=== PATIENT | male | born 1965 | race Caucasian/White ===

== ENCOUNTER 2020-04-28 23:51 | Inpatient (IN) ==
[2020-04-28] MEDS ORDERED: SODIUM CHLORIDE 0.9% 1000ML 500 ML IV ONE (23:58)
--- NOTE | 2020-04-29 00:04 | Emergency Department Note ---
Impression & Plan Altered mental status, Alcohol withdrawal ED Provider Note Name: AVILA CATHERINE Age: 55 Sex: M Arrives Via: Ambulance Informant: EMS ED Provider: Manav Louis MD Chief Complaint: Confusion Impression: Altered Mental Status Alcohol Withdrawal Medical Decision Makin yr old male with CAD s/p cabg, alcoholism, opioid addiction, htn, gerd, depression, hyperlipidemia from outside of area arrives from [facility] where he is staying for drug/alcohol rehab for the last 3 days. Patient too confused to get story though he is awake and interacting. Seems very much like alcohol withdrawal as at times he is a bit tremulous. His vitals fortunately a re normal and no hypertension/tachycardia. Labs obtained are unremarkable. There is no evidence of infection. CT head obtained given confusion and reported falls which was fortunately negative. EKG OK as is trop. Patient was given some IV fluids as he appeared a bit dry (multiple multivitamins/etc on med list thus held off on banana bag). He was noted to have some improvement in mental status though became a bit more tremulous. I discussed case with hospitalist who will bring patient in for further monitoring/management. Triage/Nursing Notes reviewed by Me Additional history obtained from chart from [facility] Differentials:Infection, dehydration, metabolic abnormality, hypo/hyperglycemia, electrolyte disturbance, anemia, hypoxia, cardiac sources, intracerebral event, toxicologic, neurologic, as well as other pathologies. Vital Signs: reviewed and remarkable for no significant abnormalities Interventions: NSS bolus 1 L IV Labs:Reviewed and remarkable for no significant abnormalities Imaging:X ray results are stated below per my interpretation: Chest: 1 view: No infiltrate, no effusion, normal cardiac border. [facility] Radiologist interpretation reviewed by me: CT head no acute findings EKG:Per My Interpretation: Indication Confusion: NSR 65 bpm, qtc 420. No Ectopy. No Ischemia. No previous for comparison. Cardiac/Tele Monitoring: Cardiac Monitoring: An Order was placed for continuous cardiac monitoring. The monitor shows a rate of 60 with a normal sinus rhythm. Consults:Dr Rema THOMAS Hospitalist Plan: Disposition:Hospitalization. Condition: Fair Prescriptions:None PDMP: n/a History of Present Illness:55 yr old male arrives for evaluation of confusion from [facility]. Patient has been at Rehab reportedly for narcotic addiction for the last 3 days after being discharged from an unknown health care facility to there. He reportedly has some baseline confusion but over the last day he has had increasing confusion. Reportedly was weak and falling at [facility] with at least 2 witnessed fall due to weakness. No reported fevers, vomiting. Patient states he is thirsty. He does not remember why he is here, where he came from, where he is, what year it is, etc. He remembers his name. Reportedly a bit diaphoretic for EMS though that seems to be resolving. Unknown if any medications given prior to EMS arrival. Nothing makes better nor worse. ROS: Unable to obtain as patient confused and denies everything but feeling thirsty Per Chart from [facility] Past Medical History:CAD, Chronic pain, htn, hypomag, depression, alcoholism (?), hyperlipidemia, GERD Past Surgical History:CABG Family History:Unknown due to patient confusion Social History:From Rehab, reportedly narcotic abuse, ? alcohol abuse?, unknown other history due to confusion Home Medications:Vivitrol injection, Buspar, coreg, b 12, folic acid, gabapentin, lisinopril, magnesium, multivitamin, zofran, protonix, paxil, sucralfate, thiamine Allergies:Per Chart: Baclofen, Flexeril, Naproxen Vitals:Blood Pressure: 149/90, Pulse 75, RR 20, T 36.9C, O2 97% on RA Physical Exam: GENERAL: Patient is confused appearing and in no acute distress. EYES: No scleral icterus, unremarkable pupils. ENT: Mucous membranes dry, no nasal congestion. NECK: No masses appreciated, nomeningismus, trachea is midline. RESPIRATORY: No dyspnea. Clear to auscultation and equal bilaterally. No wheeze, no rhonchi. CARDIOVASCULAR: Regular rate and rhythm.No murmurs, rubs, gallops appreciated. GASTROINTESTINAL: Abdomen soft, non-tender, no peritonitis.Bowel sounds positive.No masses appreciated. BACK: No midline tenderness, no CVA tenderness EXTREMITIES: Normal motion all extremities, no cyanosis, no edema. NEUROLOGIC: Mild tremulous, awake though not oriented to anything but name, no acute motor or sensory deficits, no focal weakness, cranial nerves grossly intact. SKIN: No rash, no jaundice, no diaphoresis. PSYCH: Confused GCS: 15 ED Course: Times/Reassessments: Mild improvement in mental status though noted some tremulous hands, no DTs appreciated otherwise and vitals normal Manav Louis MD Past Med/Surg History Social History Smoking Status: Unknown if ever smoked Feels Safe at Home: Yes Allergies Allergies Allergy/AdvReac Type Severity Reaction Status Date / Time baclofen Allergy Unknown Verified 04/29/20 00:18 cyclobenzaprine Allergy Unknown Verified 04/29/20 00:18 [From Flexeril] naproxen Allergy Unknown Verified 04/29/20 00:18 Home Meds Home Medications Medication Instructions Recorded Confirmed buspirone [BuSpar] 5 mg PO BID 04/29/20 04/29/20 carvedilol [Coreg] 25 mg PO BID 04/29/20 04/29/20 cyanocobalamin (vitamin B-12) 1,000 mcg PO DAILY 04/29/20 04/29/20 [Vitamin B-12] folic acid 1 mg PO DAILY 04/29/20 04/29/20 gabapentin 800 mg PO QID 04/29/20 04/29/20 lisinopril 40 mg PO QAM 04/29/20 04/29/20 magnesium oxide 400 mg PO BID 04/29/20 04/29/20 multivitamin 1 tab PO DAILY 04/29/20 04/29/20 naltrexone microspheres [Vivitrol] 380 mg IM MONTHLY 04/29/20 04/29/20 ondansetron HCl [Zofran] 8 mg PO Q8H PRN 04/29/20 04/29/20 pantoprazole [Protonix] 40 mg PO BID 04/29/20 04/29/20 paroxetine HCl [Paxil] 20 mg PO QAM 04/29/20 04/29/20 sucralfate 1 g PO ACHS 04/29/20 04/29/20 thiamine HCl (vitamin B1) 100 mg PO DAILY 04/29/20 04/29/20 Results & Data (ED) Vital Signs Vital Signs - 24 hr 04/29/20 00:02 04/29/20 00:03 04/29/20 00:08 Temperature 36.9 C Temperature Source Oral Pulse Rate 67 67 65 Pulse Rate [Right Finger] Pulse Rate from SpO2 Sensor 67 Respiratory Rate 15 17 20 Respiratory Effort / Characteristics Non-Labored Spontaneous Respiratory Depth Normal Blood Pressure 103/66 103/66 Blood Pressure [Right Arm] Blood Pressure Mean 74 78 Blood Pressure Mean [Right Arm] Pulse Oximetry 95 96 Oxygen Delivery Method Room Air Sepsis Recent Fever Within 48 Hours No Sepsis New/Unexplained Change in Mental Status No Sepsis Action Taken by Nursing No Action Required 04/29/20 00:10 04/29/20 00:20 04/29/20 00:29 Temperature Temperature Source Pulse Rate 64 66 Pulse Rate [Right Finger] 75 Pulse Rate from SpO2 Sensor 63 64 Respiratory Rate 15 14 20 Respiratory Effort / Characteristics Non-Labored Respiratory Depth Normal Blood Pressure Blood Pressure [Right Arm] 149/90 H Blood Pressure Mean Blood Pressure Mean [Right Arm] 109 Pulse Oximetry 95 94 97 Oxygen Delivery Method Room Air Sepsis Recent Fever Within 48 Hours Sepsis New/Unexplained Change in Mental Status Sepsis Action Taken by Nursing 04/29/20 00:30 04/29/20 00:31 04/29/20 00:40 Temperature Temperature Source Pulse Rate 61 64 69 Pulse Rate [Right Finger] Pulse Rate from SpO2 Sensor 64 64 72 Respiratory Rate 16 12 13 Respiratory Effort / Characteristics Respiratory Depth Blood Pressure 116/78 Blood Pressure [Right Arm] Blood Pressure Mean 95 Blood Pressure Mean [Right Arm] Pulse Oximetry 94 94 93 Oxygen Delivery Method Sepsis Recent Fever Within 48 Hours Sepsis New/Unexplained Change in Mental Status Sepsis Action Taken by Nursing 04/29/20 00:50 04/29/20 01:09 04/29/20 01:10 Temperature Temperature Source Pulse Rate 62 57 L Pulse Rate [Right Finger] Pulse Rate from SpO2 Sensor 62 58 L Respiratory Rate 13 Respiratory Effort / Characteristics Respiratory Depth Blood Pressure Blood Pressure [Right Arm] Blood Pressure Mean Blood Pressure Mean [Right Arm] Pulse Oximetry 97 96 Oxygen Delivery Method Sepsis Recent Fever Within 48 Hours Sepsis New/Unexplained Change in Mental Status Sepsis Action Taken by Nursing 04/29/20 01:20 04/29/20 01:30 04/29/20 01:40 Temperature Temperature Source Pulse Rate 58 L 59 L 62 Pulse Rate [Right Finger] Pulse Rate from SpO2 Sensor 59 L 59 L 61 Respiratory Rate 13 15 12 Respiratory Effort / Characteristics Respiratory Depth Blood Pressure 110/74 Blood Pressure [Right Arm] Blood Pressure Mean 79 Blood Pressure Mean [Right Arm] Pulse Oximetry 94 95 96 Oxygen Delivery Method Sepsis Recent Fever Within 48 Hours Sepsis New/Unexplained Change in Mental Status Sepsis Action Taken by Nursing 04/29/20 01:50 04/29/20 01:59 04/29/20 02:00 Temperature Temperature Source Pulse Rate 61 58 L Pulse Rate [Right Finger] 61 Pulse Rate from SpO2 Sensor 62 58 L Respiratory Rate 18 20 15 Respiratory Effort / Characteristics Respiratory Depth Blood Pressure 119/71 Blood Pressure [Right Arm] 110/74 Blood Pressure Mean 78 Blood Pressure Mean [Right Arm] 86 Pulse Oximetry 97 96 94 Oxygen Delivery Method Room Air Sepsis Recent Fever Within 48 Hours Sepsis New/Unexplained Change in Mental Status Sepsis Action Taken by Nursing 04/29/20 02:30 04/29/20 03:00 Temperature Temperature Source Pulse Rate 58 L 60 Pulse Rate [Right Finger] Pulse Rate from SpO2 Sensor 57 L 59 L Respiratory Rate 13 12 Respiratory Effort / Characteristics Respiratory Depth Blood Pressure 98/71 L 107/69 Blood Pressure [Right Arm] Blood Pressure Mean 79 78 Blood Pressure Mean [Right Arm] Pulse Oximetry 95 93 Oxygen Delivery Method Sepsis Recent Fever Within 48 Hours Sepsis New/Unexplained Change in Mental Status Sepsis Action Taken by Nursing Laboratory Data Result diagrams: 04/29/20 00:14 04/29/20 00:14 Lab Results 04/29/20 04/29/20 04/29/20 Range/Units 00:04 00:04 00:14 WBC (4.8-10.8) K/uL RBC (4.7-6.1) M/uL Hgb (14.0-18.0) g/dL Hct (42-52) % MCV (80-100) fL MCH (25-34) pg MCHC (32-36) g/dL RDW Std Deviation (36.4-46.3) fL RDW Coeff of Dionne (11.5-14.5) % Plt Count (130-400) K/uL MPV (7.4-10.4) fL Immature Gran % (Auto) % Neut % (Auto) % Lymph % (Auto) % Haywood % (Auto) % Eos % (Auto) % Baso % (Auto) % Neut # (Auto) (1.4-6.5) K/uL Lymph # (Auto) (1.2-3.4) K/uL Haywood # (Auto) (0.11-0.59) K/uL Eos # (Auto) (0-0.5) K/uL Baso # (Auto) (0-0.2) K/uL Immature Gran # (Auto) (0.00-0.02) K/uL PT (9.0-12.0) Seconds INR (0.9-1.1) Sodium (136-145) mmol/L Potassium (3.5-5.1) mmol/L Chloride (98-107) mmol/L Carbon Dioxide (21-32) mmol/L Anion Gap (3-11) BUN (7-18) mg/dl Creatinine (0.6-1.4) mg/dl Est Cr Clr Drug Dosing ml/min Est GFR ( Amer) Est GFR (Non-Af Amer) BUN/Creatinine Ratio (10-20) Glucose (70-99) mg/dl Calcium (8.5-10.1) mg/dl Magnesium (1.8-2.4) mg/dl Total Bilirubin (0.2-1) mg/dl Direct Bilirubin (0-0.2) mg/dl AST (15-37) U/L ALT (12-78) U/L Alkaline Phosphatase (45-117) U/L Ammonia 27.0 (11-32) umol/L Troponin I (0-0.045) ng/ml Total Protein (6.4-8.2) gm/dl Albumin (3.4-5.0) gm/dl Urine Color Yellow Urine Appearance Clear (Clear) Urine pH 5.5 (4.5-7.5) Ur Specific Brewster 1.012 (1.000-1.030) Urine Protein Negative (Negative) Urine Glucose (UA) Negative (Negative) Urine Ketones Negative (Negative) Urine Blood Negative (Negative) Urine Nitrite Negative (Negative) Urine Bilirubin Negative (Negative) Urine Urobilinogen Negative (Negative) Ur Leukocyte Esterase Negative (Negative) Urine Opiates Screen Neg (Neg) Ur Methadone, Qual Neg (Neg) Urine Barbiturates Neg (Neg) Ur Phencyclidine (PCP) Neg (Neg) U Amphetamin/Meth Scrn Neg (Neg) MDMA (Ecstasy) Screen Neg (Neg) U Benzodiazepines Scrn Pos H (Neg) Ur Cocaine Metabolite Neg (Neg) U Marijuana (THC) Screen Neg (Neg) Ethyl Alcohol mg/dL (0-3) mg/dl COVID-19 Eval Order SARS-CoV-2 RNA (RT-PCR) 04/29/20 04/29/20 04/29/20 Range/Units 00:14 00:14 00:14 WBC 7.92 (4.8-10.8) K/uL RBC 4.45 L (4.7-6.1) M/uL Hgb 14.8 (14.0-18.0) g/dL Hct 44.5 (42-52) % MCV 100.0 (80-100) fL MCH 33.3 (25-34) pg MCHC 33.3 (32-36) g/dL RDW Std Deviation 47.9 H (36.4-46.3) fL RDW Coeff of Dionne 13.3 (11.5-14.5) % Plt Count 208 (130-400) K/uL MPV 12.4 H (7.4-10.4) fL Immature Gran % (Auto) 0.3 % Neut % (Auto) 64.0 % Lymph % (Auto) 21.0 % Haywood % (Auto) 9.5 % Eos % (Auto) 4.4 % Baso % (Auto) 0.8 % Neut # (Auto) 5.08 (1.4-6.5) K/uL Lymph # (Auto) 1.66 (1.2-3.4) K/uL Haywood # (Auto) 0.75 H (0.11-0.59) K/uL Eos # (Auto) 0.35 (0-0.5) K/uL Baso # (Auto) 0.06 (0-0.2) K/uL Immature Gran # (Auto) 0.02 (0.00-0.02) K/uL PT 10.5 (9.0-12.0) Seconds INR 1.0 (0.9-1.1) Sodium 138 (136-145) mmol/L Potassium 5.3 H (3.5-5.1) mmol/L Chloride 105 (98-107) mmol/L Carbon Dioxide 27 (21-32) mmol/L Anion Gap 6.0 (3-11) BUN 22 H (7-18) mg/dl Creatinine 1.53 H (0.6-1.4) mg/dl Est Cr Clr Drug Dosing 60.3 ml/min Est GFR ( Amer) 58.9 Est GFR (Non-Af Amer) 50.8 BUN/Creatinine Ratio 14.2 (10-20) Glucose 110 H (70-99) mg/dl Calcium 9.7 (8.5-10.1) mg/dl Magnesium 2.5 H (1.8-2.4) mg/dl Total Bilirubin 0.2 (0.2-1) mg/dl Direct Bilirubin < 0.1 (0-0.2) mg/dl AST 63 H (15-37) U/L ALT 66 (12-78) U/L Alkaline Phosphatase 68 (45-117) U/L Ammonia (11-32) umol/L Troponin I < 0.015 (0-0.045) ng/ml Total Protein 8.3 H (6.4-8.2) gm/dl Albumin 3.5 (3.4-5.0) gm/dl Urine Color Urine Appearance (Clear) Urine pH (4.5-7.5) Ur Specific Brewster (1.000-1.030) Urine Protein (Negative) Urine Glucose (UA) (Negative) Urine Ketones (Negative) Urine Blood (Negative) Urine Nitrite (Negative) Urine Bilirubin (Negative) Urine Urobilinogen (Negative) Ur Leukocyte Esterase (Negative) Urine Opiates Screen (Neg) Ur Methadone, Qual (Neg) Urine Barbiturates (Neg) Ur Phencyclidine (PCP) (Neg) U Amphetamin/Meth Scrn (Neg) MDMA (Ecstasy) Screen (Neg) U Benzodiazepines Scrn (Neg) Ur Cocaine Metabolite (Neg) U Marijuana (THC) Screen (Neg) Ethyl Alcohol mg/dL (0-3) mg/dl COVID-19 Eval Order SARS-CoV-2 RNA (RT-PCR) 04/29/20 04/29/20 04/29/20 Range/Units 00:14 01:36 01:36 WBC (4.8-10.8) K/uL RBC (4.7-6.1) M/uL Hgb (14.0-18.0) g/dL Hct (42-52) % MCV (80-100) fL MCH (25-34) pg MCHC (32-36) g/dL RDW Std Deviation (36.4-46.3) fL RDW Coeff of Dionne (11.5-14.5) % Plt Count (130-400) K/uL MPV (7.4-10.4) fL Immature Gran % (Auto) % Neut % (Auto) % Lymph % (Auto) % Haywood % (Auto) % Eos % (Auto) % Baso % (Auto) % Neut # (Auto) (1.4-6.5) K/uL Lymph # (Auto) (1.2-3.4) K/uL Haywood # (Auto) (0.11-0.59) K/uL Eos # (Auto) (0-0.5) K/uL Baso # (Auto) (0-0.2) K/uL Immature Gran # (Auto) (0.00-0.02) K/uL PT (9.0-12.0) Seconds INR (0.9-1.1) Sodium (136-145) mmol/L Potassium (3.5-5.1) mmol/L Chloride (98-107) mmol/L Carbon Dioxide (21-32) mmol/L Anion Gap (3-11) BUN (7-18) mg/dl Creatinine (0.6-1.4) mg/dl Est Cr Clr Drug Dosing ml/min Est GFR ( Amer) Est GFR (Non-Af Amer) BUN/Creatinine Ratio (10-20) Glucose (70-99) mg/dl Calcium (8.5-10.1) mg/dl Magnesium (1.8-2.4) mg/dl Total Bilirubin (0.2-1) mg/dl Direct Bilirubin (0-0.2) mg/dl AST (15-37) U/L ALT (12-78) U/L Alkaline Phosphatase (45-117) U/L Ammonia (11-32) umol/L Troponin I (0-0.045) ng/ml Total Protein (6.4-8.2) gm/dl Albumin (3.4-5.0) gm/dl Urine Color Urine Appearance (Clear) Urine pH (4.5-7.5) Ur Specific Brewster (1.000-1.030) Urine Protein (Negative) Urine Glucose (UA) (Negative) Urine Ketones (Negative) Urine Blood (Negative) Urine Nitrite (Negative) Urine Bilirubin (Negative) Urine Urobilinogen (Negative) Ur Leukocyte Esterase (Negative) Urine Opiates Screen (Neg) Ur Methadone, Qual (Neg) Urine Barbiturates (Neg) Ur Phencyclidine (PCP) (Neg) U Amphetamin/Meth Scrn (Neg) MDMA (Ecstasy) Screen (Neg) U Benzodiazepines Scrn (Neg) Ur Cocaine Metabolite (Neg) U Marijuana (THC) Screen (Neg) Ethyl Alcohol mg/dL < 3.0 (0-3) mg/dl COVID-19 Eval Order Covid19 Done at [facility] SARS-CoV-2 RNA (RT-PCR) Cancelled Administered Medications Discontinued Medications Sodium Chloride (Nss 1000ml) 500 mls @ 999 mls/hr IV .Q31M ONE Stop: 04/29/20 00:28 Last Admin: 04/29/20 00:31 Dose: 999 mls/hr Documented by: [id number] Discharge Plan Visit Data Chief Complaint: Dizziness Stated Complaint: DIZZINESS/NEAR SYNCOPE ED Provider: Manav Louis Discharge Problem: Altered mental status, Alcohol withdrawal Forms Stand Alone Forms: My [facility] [place] [employer] Prescriptions Prescriptions: No Action carvedilol [Coreg] 25 mg Tablet 25 mg PO BID RF: 0 cyanocobalamin (vitamin B-12) [Vitamin B-12] 1,000 mcg Tablet 1,000 mcg PO DAILY RF: 0 thiamine HCl (vitamin B1) 100 mg Tablet 100 mg PO DAILY RF: 0 gabapentin 800 mg tablet 800 mg PO QID RF: 0 paroxetine HCl [Paxil] 20 mg Tablet 20 mg PO QAM RF: 0 folic acid 1 mg Tablet 1 mg PO DAILY RF: 0 Vivitrol 380 mg suspension,extended rel recon 380 mg IM MONTHLY RF: 0 magnesium oxide 400 mg magnesium Tablet 400 mg PO BID RF: 0 multivitamin Tablet 1 tab PO DAILY RF: 0 buspirone [BuSpar] 5 mg Tablet 5 mg PO BID RF: 0 sucralfate 1 gram Tablet 1 g PO ACHS RF: 0 pantoprazole [Protonix] 40 mg Tablet,Delayed Release (Dr/Ec) 40 mg PO BID RF: 0 lisinopril 40 mg Tablet 40 mg PO QAM RF: 0 ondansetron HCl [Zofran] 8 mg Tablet 8 mg PO Q8H PRN (Reason: Nausea) RF: 0 Discharge Problem: Altered mental status Qualifiers: Altered mental status type: delirium Qualified Code(s): R41.0 - Disorientation, unspecified Alcohol withdrawal Qualifiers: Complication of substance-induced condition: with delirium Qualified Code(s): F10.231 - Alcohol dependence with withdrawal delirium
--- NOTE | 2020-04-29 00:16 | XRay Report ---
SINGLE VIEW CHEST CLINICAL HISTORY: Change in mental status. FINDINGS: An AP, portable, upright chest radiograph is obtained. No prior studies are available for c omparison at the time of dictation. The examination is degraded by portable technique and apical lord otic positioning. The patient is status post midline sternotomy. The heart is enlarged. The pulmonary vasculature is noncongested. Atelectasis is noted at the left lung base. The lungs and pleural space s are otherwise clear. No pneumothorax is seen. The bony thorax is grossly intact. IMPRESSION: Cardiomegaly with no active disease in the chest. ACT 112: Negative or not required by law. Electronically signed by: Oscar Dela Cruz M.D. 04/29/2020 12:15 AM
[2020-04-29 00:34] LABS: Basophils # (auto) 0.06 K/uL (0-0.2); Basophils % (auto) 0.8 %; Eosinophils # (auto) 0.35 K/uL (0-0.5); Eosinophils % (auto) 4.4 %; Hematocrit (blood only) 44.5 % (42-52); Hemoglobin 14.8 g/dL (14.0-18.0); Immature Granulocytes # (auto) 0.02 K/uL (0.00-0.02); Immature Granulocytes % (auto) 0.3 %; Lymphocytes # (auto) 1.66 K/uL (1.2-3.4); Mean Corpuscular Hemoglobin 33.3 pg (25-34); Mean Corpuscular Hgb Conc 33.3 g/dL (32-36); Mean Platelet Volume 12.4 fL (7.4-10.4); Monocytes # (auto) 0.75 K/uL (0.11-0.59); Monocytes % (auto) 9.5 %; Neutrophils # (auto) 5.08 K/uL (1.4-6.5); Platelet Count 208 K/uL (130-400); RDW Coefficient of Variation 13.3 % (11.5-14.5); RDW Standard Deviation 47.9 fL (36.4-46.3); Red Blood Count 4.45 M/uL (4.7-6.1); White Blood Count 7.92 K/uL (4.8-10.8)
[2020-04-29 00:37] LABS: Appearance Urine Clear (Clear); Bilirubin Urine Negative (Negative); Blood Urine Negative (Negative); Color Urine Yellow; Glucose Urine UA Negative (Negative); Ketones Urine Negative (Negative); Leukocyte Esterase Urine Negative (Negative); Nitrite Urine Negative (Negative); Protein Urine Negative (Negative); Specific Gravity Urine 1.012 (1.000-1.030); Urobilinogen Urine Negative (Negative); pH Urine 5.5 (4.5-7.5)
[2020-04-29 00:52] LABS: Prothrombin Time 10.5 Seconds (9.0-12.0)
[2020-04-29 00:53] LABS: Alanine Aminotransferase 66 U/L (12-78); Albumin Level 3.5 gm/dl (3.4-5.0); Aspartate Aminotransferase 63 U/L (15-37); BUN Creatinine Ratio 14.2 (10-20); Bilirubin Direct < 0.1 mg/dl (0-0.2); Blood Urea Nitrogen 22 mg/dl (7-18); Calcium 9.7 mg/dl (8.5-10.1); Carbon Dioxide 27 mmol/L (21-32); Chloride 105 mmol/L (98-107); Creatinine Clr Calc Pharmacy 60.3 ml/min; Est GFR (African American) 58.9; Est GFR (Non-African American) 50.8; Glucose 110 mg/dl (70-99); Magnesium 2.5 mg/dl (1.8-2.4); Potassium 5.3 mmol/L (3.5-5.1); Sodium 138 mmol/L (136-145)
[2020-04-29 00:58] LABS: Alkaline Phosphatase 68 U/L (45-117); Bilirubin,Total 0.2 mg/dl (0.2-1); Total Protein 8.3 gm/dl (6.4-8.2); Troponin I < 0.015 ng/ml (0-0.045)
--- NOTE | 2020-04-29 01:17 | CT Scan Report ---
CT SCAN OF THE BRAIN WITHOUT IV CONTRAST CLINICAL HISTORY: Change in mental status. Dizziness. COMPARISON STUDY: No priors. TECHNIQUE: Unenhanced axial CT scan of the brain is performed from the vertex to the skull base. A d ose lowering technique was utilized adhering to the principles of ALARA. CT DOSE: 614.27 mGy.cm FINDINGS: Brain parenchyma: The brain parenchyma is normal in appearance. There is no hemorrhage, mass effect, or evidence of acute territorial ischemia by CT criteria. Johnston-white matter differentiation is preser az. No extra-axial fluid collection is seen. Ventricles, sulci, cisterns: Normal in configuration. Intracranial vasculature: The visualized intracranial vasculature at the skull base is normal in appe arance. Calvarium: Unremarkable. Sinuses and mastoids: The visualized paranasal sinuses are clear. The mastoid air cells are well pneu matized. Orbits: The bony orbits are grossly intact. IMPRESSION: There is no hemorrhage, mass effect, or evidence of acute territorial ischemia by CT merna powers. ACT 112: Negative or not required by law. Electronically signed by: Oscar Dela Cruz M.D. 04/29/2020 1:15 AM
[2020-04-29 01:56] LABS: Amphetamines+Metham, Urine Neg (Neg); Barbiturates, Urine Neg (Neg); Benzodiazepine, Urine Pos (Neg); Cocaine, Urine Neg (Neg); MDMA (Ecstacy), Urine Neg (Neg); Methadone, Urine Neg (Neg); Opiate, Urine Neg (Neg); Phencyclidine, Urine Neg (Neg)
--- NOTE | 2020-04-29 02:03 | History & Physical Report ---
Date of Service April 29, 2020 Assessment & Plan (1) Alcohol withdrawal: Acute alcohol withdrawal/confusion/tremor/disordered thinking/memory dysfunction/anxiety- Begin AWSS protocol with IV lorazepam. Continue his current extensive regimen: Buspirone, vitamin B12, folic acid, gabapentin, multivitamin, and thiamine He is also on naltrexone microspheres/Vivitrol 380 mg IM monthly. Present on Admission?: Yes (2) Altered mental status: See above Present on Admission?: Yes (3) CAD (coronary artery disease): CAD/hypertension/history of CABG- Continue carvedilol 25 mg p.o. twice daily. Hold lisinopril 40 mg every morning for now. Present on Admission?: Yes (4) HTN (hypertension): See above Present on Admission?: Yes (5) GERD (gastroesophageal reflux disease): Continue pantoprazole 40 mg p.o. twice daily Present on Admission?: Yes (6) Anxiety: See above Present on Admission?: Yes History of Present Illness Chief Complaint: The patient presents to the emergency department via EMS from [facility] with reported confusion and in alcohol withdrawal Primary Care Provider: [facility] The patient is a 55-year-old male with a past medical history including CAD, hypertension, vitamin B12 deficiency, anxiety, alcohol abuse disorder, GERD and chronic treatment for alcohol abuse. The patient initially presented to the emergency department confused, not knowing where he was staying at locally, and unable to answer questions properly. He did improve somewhat after administration of vitamins and IV fluids, but was showing signs of significant body tremors, and withdrawal from alcohol. Allergies Allergy/AdvReac Type Severity Reaction Status Date / Time baclofen Allergy Unknown Verified 04/29/20 00:18 cyclobenzaprine Allergy Unknown Verified 04/29/20 00:18 [From Flexeril] naproxen Allergy Unknown Verified 04/29/20 00:18 Home Medications Home Medications Medication Instructions Recorded Confirmed Type buspirone [BuSpar] 5 mg PO BID 04/29/20 04/29/20 History carvedilol [Coreg] 25 mg PO BID 04/29/20 04/29/20 History cyanocobalamin (vitamin B-12) 1,000 mcg PO DAILY 04/29/20 04/29/20 History [Vitamin B-12] folic acid 1 mg PO DAILY 04/29/20 04/29/20 History gabapentin 800 mg PO QID 04/29/20 04/29/20 History lisinopril 40 mg PO QAM 04/29/20 04/29/20 History magnesium oxide 400 mg PO BID 04/29/20 04/29/20 History multivitamin 1 tab PO DAILY 04/29/20 04/29/20 History naltrexone microspheres [Vivitrol] 380 mg IM MONTHLY 04/29/20 04/29/20 History ondansetron HCl [Zofran] 8 mg PO Q8H PRN 04/29/20 04/29/20 History pantoprazole [Protonix] 40 mg PO BID 04/29/20 04/29/20 History paroxetine HCl [Paxil] 20 mg PO QAM 04/29/20 04/29/20 History sucralfate 1 g PO ACHS 04/29/20 04/29/20 History thiamine HCl (vitamin B1) 100 mg PO DAILY 04/29/20 04/29/20 History Past Med/Surg History Medical History (Updated 04/29/20 @ 05:29 by Harry Hodgson MD) Anxiety CAD (coronary artery disease) GERD (gastroesophageal reflux disease) HTN (hypertension) Surgical History (Updated 04/29/20 @ 05:29 by Harry Hodgson MD) History of cholecystectomy Previous back surgery S/P CABG x 2 2017 Social History Smoking Status: Never smoker Hx Alcohol Use: No ("i used to" (patient from alcohol rehab)) Hx Substance Use: No Preferred Language: Kazakh Communication Ability: Effective Customs Compliance Analyst Required: No Beliefs That Will Affect Care: None Current Living Situation: Rehab Feels Safe at Home: Yes Safety Concerns: Feels Safe At This Time Assistive Devices: Cane, Denture - Upper, Denture - Lower and Glasses Review of Systems Review of Systems: The patient denies chest pain, palpitations, shortness of breath, dyspnea on exertion, cough, lower extremity swelling, sore throat, fevers, chills, nausea, vomiting, diarrhea, constipation, abdominal pain, pelvic pain, blood in urine or stool, dysuria, urinary frequency or urgency, loss of consciousness, rash, imbalance, focal weakness, generalized arthralgias or myalgias, back or neck pain, or night sweats. The review of systems is otherwise negative other than for that already noted above, and at least 10 systems have been reviewed. Physical Exam Physical Exam: The patient is awake, intermittently confused, tremulous, normocephalic and atraumatic, lying in bed and in mild distress. HEENT--PERRL, EOMI, mucous membranes and oropharynx dry. Neck--supple. No JVD. No bruits. Thyroid normal, trachea midline, no adenopathy. Heart--normal S1 and S2. No murmurs, rubs or gallops. Lungs--clear bilaterally, no respiratory distress, no accessory muscle use. Abdomen--normal bowel sounds and soft. Nontender. Nondistended, no hernias or masses, no organomegaly. Extremities--no cyanosis or clubbing. No edema. Dermatologic--normal skin turgor, normal color, no abnormal lymph nodes, no rash. Neurologic--cranial nerves II through XII grossly intact. Rheumatologic--normal range of motion. Psychiatric--in alcohol withdrawal Results & Data Results & Data ([facility]) Vital Signs (Past 12 Hours) Vital Signs Temp Pulse Pulse Resp BP BP Pulse Ox 04/29/20 01:59 61 20 110/74 96 04/29/20 01:50 61 18 97 04/29/20 01:40 62 12 96 04/29/20 01:30 59 L 15 110/74 95 04/29/20 01:20 58 L 13 94 04/29/20 01:10 57 L 13 96 04/29/20 01:09 62 04/29/20 00:50 97 04/29/20 00:40 69 13 93 04/29/20 00:31 64 12 94 04/29/20 00:30 61 16 116/78 94 04/29/20 00:29 75 20 149/90 H 97 04/29/20 00:20 66 14 94 04/29/20 00:10 64 15 95 04/29/20 00:08 98.4 F 65 20 103/66 96 04/29/20 00:03 67 17 103/66 95 04/29/20 00:02 67 15 Laboratory Results Laboratory Results WBC 7.92 K/uL (4.8-10.8) 04/29/20 00:14 RBC 4.45 M/uL (4.7-6.1) L 04/29/20 00:14 Hgb 14.8 g/dL (14.0-18.0) 04/29/20 00:14 Hct 44.5 % (42-52) 04/29/20 00:14 MCV 100.0 fL (80-100) 04/29/20 00:14 MCH 33.3 pg (25-34) 04/29/20 00:14 MCHC 33.3 g/dL (32-36) 04/29/20 00:14 RDW Std Deviation 47.9 fL (36.4-46.3) H 04/29/20 00:14 RDW Coeff of Dionne 13.3 % (11.5-14.5) 04/29/20 00:14 Plt Count 208 K/uL (130-400) 04/29/20 00:14 MPV 12.4 fL (7.4-10.4) H 04/29/20 00:14 Immature Gran % (Auto) 0.3 % 04/29/20 00:14 Neut % (Auto) 64.0 % 04/29/20 00:14 Lymph % (Auto) 21.0 % 04/29/20 00:14 Treasure % (Auto) 9.5 % 04/29/20 00:14 Eos % (Auto) 4.4 % 04/29/20 00:14 Baso % (Auto) 0.8 % 04/29/20 00:14 Neut # (Auto) 5.08 K/uL (1.4-6.5) 04/29/20 00:14 Lymph # (Auto) 1.66 K/uL (1.2-3.4) 04/29/20 00:14 Treasure # (Auto) 0.75 K/uL (0.11-0.59) H 04/29/20 00:14 Eos # (Auto) 0.35 K/uL (0-0.5) 04/29/20 00:14 Baso # (Auto) 0.06 K/uL (0-0.2) 04/29/20 00:14 Immature Gran # (Auto) 0.02 K/uL (0.00-0.02) 04/29/20 00:14 PT 10.5 Seconds (9.0-12.0) 04/29/20 00:14 INR 1.0 (0.9-1.1) 04/29/20 00:14 Sodium 138 mmol/L (136-145) 04/29/20 00:14 Potassium 5.3 mmol/L (3.5-5.1) H 04/29/20 00:14 Chloride 105 mmol/L (98-107) 04/29/20 00:14 Carbon Dioxide 27 mmol/L (21-32) 04/29/20 00:14 Anion Gap 6.0 (3-11) 04/29/20 00:14 BUN 22 mg/dl (7-18) H 04/29/20 00:14 Creatinine 1.53 mg/dl (0.6-1.4) H 04/29/20 00:14 Est Cr Clr Drug Dosing 60.3 ml/min 04/29/20 00:14 Est GFR ( Amer) 58.9 04/29/20 00:14 Est GFR (Non-Af Amer) 50.8 04/29/20 00:14 BUN/Creatinine Ratio 14.2 (-20) 04/29/20 00:14 Glucose 110 mg/dl (70-99) H 04/29/20 00:14 Calcium 9.7 mg/dl (8.5-10.1) 04/29/20 00:14 Magnesium 2.5 mg/dl (1.8-2.4) H 04/29/20 00:14 Total Bilirubin 0.2 mg/dl (0.2-1) 04/29/20 00:14 Direct Bilirubin < 0.1 mg/dl (0-0.2) 04/29/20 00:14 AST 63 U/L (15-37) H 04/29/20 00:14 ALT 66 U/L (12-78) 04/29/20 00:14 Alkaline Phosphatase 68 U/L (45-117) 04/29/20 00:14 Ammonia 27.0 umol/L (11-32) 04/29/20 00:14 Troponin I < 0.015 ng/ml (0-0.045) 04/29/20 00:14 Total Protein 8.3 gm/dl (6.4-8.2) H 04/29/20 00:14 Albumin 3.5 gm/dl (3.4-5.0) 04/29/20 00:14 Urine Color Yellow 04/29/20 00:04 Urine Appearance Clear (Clear) 04/29/20 00:04 Urine pH 5.5 (4.5-7.5) 04/29/20 00:04 Ur Specific [place] 1.012 (1.000-1.030) 04/29/20 00:04 Urine Protein Negative (Negative) 04/29/20 00:04 Urine Glucose (UA) Negative (Negative) 04/29/20 00:04 Urine Ketones Negative (Negative) 04/29/20 00:04 Urine Blood Negative (Negative) 04/29/20 00:04 Urine Nitrite Negative (Negative) 04/29/20 00:04 Urine Bilirubin Negative (Negative) 04/29/20 00:04 Urine Urobilinogen Negative (Negative) 04/29/20 00:04 Ur Leukocyte Esterase Negative (Negative) 04/29/20 00:04 Urine Opiates Screen Neg (Neg) 04/29/20 00:04 Ur Methadone, Qual Neg (Neg) 04/29/20 00:04 Urine Barbiturates Neg (Neg) 04/29/20 00:04 Ur Phencyclidine (PCP) Neg (Neg) 04/29/20 00:04 U Amphetamin/Meth Scrn Neg (Neg) 04/29/20 00:04 MDMA (Ecstasy) Screen Neg (Neg) 04/29/20 00:04 U Benzodiazepines Scrn Pos (Neg) H 04/29/20 00:04 Ur Cocaine Metabolite Neg (Neg) 04/29/20 00:04 U Marijuana (THC) Screen Neg (Neg) 04/29/20 00:04 Ethyl Alcohol mg/dL < 3.0 mg/dl (0-3) 04/29/20 00:14 COVID-19 Eval Order Covid19 Done at [facility] 04/29/20 01:36 COVID-19 PCR NEGATIVE (Negative) 04/29/20 01:36 SARS-CoV-2 RNA (RT-PCR) Cancelled 04/29/20 01:36 Diagnostic Findings [place], [place] [phone] CT Scan Report Patient: AVILA CATHERINEAdmit Date: 04/28/20 MR#: [id number]: [address] [facility] Acct ID:[id number]: Date: 1965[facility] Zip: [place] [address] Age: 55Location: ED Sex: MRoom/Bed: Att Phy:Diagnosis: DIZZINESS/NEAR SYNCOPE Chela Phy: [facility] InstituteService Date: 04/[facility]/20 Fam Phy:Interpreting Phy: Oscar Dela Cruz MD Admit Phy: Ordering Phy: Manav Louis M.D. cc: ~ CT SCAN OF THE BRAIN WITHOUT IV CONTRAST CLINICAL HISTORY: Change in mental status. Dizziness. COMPARISON STUDY: No priors. TECHNIQUE: Unenhanced axial CT scan of the brain is performed from the vertex to the skull base. A dose lowering technique was utilized adhering to the principles of ALARA. CT DOSE: 614.27 mGy.cm FINDINGS: Brain parenchyma: The brain parenchyma is normal in appearance. There is no hemorrhage, mass effect, or evidence of acute territorial ischemia by CT criteria. Johnston-white matter differentiation is preserved. No extra-axial fluid collection is seen. Ventricles, sulci, cisterns: Normal in configuration. Intracranial vasculature: The visualized intracranial vasculature at the skull base is normal in appearance. Calvarium: Unremarkable. Sinuses and mastoids: The visualized paranasal sinuses are clear. The mastoid air cells are well pneumatized. Orbits: The bony orbits are grossly intact. IMPRESSION: There is no hemorrhage, mass effect, or evidence of acute territorial ischemia by CT criteria. ACT 112: Negative or not required by law. Electronically signed by: Oscar Dela Cruz M.D. 04/29/2020 1:15 AM Dictated: 04/29/20113 Transcribed: 04/29/20113 [place], [place] [phone] XRay Report Patient: AVILA CATHERINEAdmit Date: 04/28/20 MR#: [id number]: [address] [facility] Acct ID:[id number]: [facility]: 1965[facility] Zip[facility] [place] [address] Age: 55Location: ED Sex: MRoom/Bed: Att Phy:Diagnosis: DIZZINESS/NEAR SYNCOPE Chela Phy: PCP,NOService Date: 04/28/20 Fam Phy:Interpreting Phy: Oscar Dela Cruz MD Admit Phy: Ordering Phy: Manav Louis M.D. cc: ~ SINGLE VIEW CHEST CLINICAL HISTORY: Change in mental status. FINDINGS: An AP, portable, upright chest radiograph is obtained. No prior studies are available for comparison at the time of dictation. The examination is degraded by portable technique and apical lordotic positioning. The patient is status post midline sternotomy. The heart is enlarged. The pulmonary vasculature is noncongested. Atelectasis is noted at the left lung base. The lungs and pleural spaces are otherwise clear. No pneumothorax is seen. The bony thorax is grossly intact. IMPRESSION: Cardiomegaly with no active disease in the chest. ACT 112: Negative or not required by law. Electronically signed by: Oscar Dela Cruz M.D. 04/29/2020 12:15 AM Dictated: 04/29/2013 Transcribed: 04/29/2013 Code Status & VTE Plan Code Status Full code VTE Prophylaxis Plan VTE Prophylaxis will be ordered: Yes PG Care Time/CCT Total # of Minutes Spent Total Time Spent with Patient: Total time spent is greater than 50% in coordination of care (as documented) at patient's floor/unit and/or counseling patient: Coding Level of Care Code 15947 Initial Inpt Care Lvl 3 Diagnoses Alcohol withdrawal F10.231 Complication of substance-induced condition: with delirium Altered mental status R41.0 Altered mental status type: delirium CAD (coronary artery disease) I25.10 HTN (hypertension) I10 GERD (gastroesophageal reflux disease) K21.9 Anxiety F41.9 (1) Alcohol withdrawal Complication of substance-induced condition: with delirium Qualified Code(s): F10.231 - Alcohol dependence with withdrawal delirium (2) Altered mental status Altered mental status type: delirium Qualified Code(s): R41.0 - Disorientation, unspecified
[2020-04-29] MEDS ORDERED: LORazepam 3 MG/6 ML VIAL IV PRN (04:44)
[2020-04-29] MEDS ORDERED: ONDANSETRON INJ 2 MG/ML 2 ML VIAL IV PRN (04:44)
[2020-04-29] MEDS ORDERED: LORazepam 2 MG/4 ML VIAL IV PRN (04:44)
[2020-04-29] MEDS ORDERED: ATIVAN IV ALCOHOL WITHDRAWL IV PRN (04:44)
[2020-04-29] MEDS: LORazepam 1 MG/2 ML VIAL IV PRN ×4 (05:33→20:47)
[2020-04-29 05:34] LABS: Prothrombin Time 10.5 Seconds (9.0-12.0)
[2020-04-29] MEDS: HEPARIN SOD 5,000 UNIT/0.5 ML VIAL SQ SCH ×2 (08:53→20:51)
[2020-04-29] MEDS: carvediloL 25 MG TAB PO SCH ×2 (08:54→19:54)
[2020-04-29] MEDS: SUCRALFATE 1 GM TAB PO SCH ×4 (08:54→20:49)
[2020-04-29] MEDS: busPIRone 5 MG TAB PO SCH ×2 (08:54→20:49)
[2020-04-29] MEDS: CYANOCOBALAMIN 500 MCG TABLET (VITAMIN B-12) PO SCH (08:55)
[2020-04-29] MEDS: THIAMINE HCL 100 MG TAB PO SCH (08:55)
[2020-04-29] MEDS: PARoxetine HCL 20 MG TAB PO SCH (08:55)
[2020-04-29] MEDS: PANTOprazole 40 MG TAB PO SCH ×2 (08:55→20:49)
[2020-04-29] MEDS: GABAPENTIN 800 MG TAB PO SCH ×4 (08:55→20:49)
[2020-04-29] MEDS: MULTIVITAMIN TAB PO SCH (08:55)
[2020-04-29] MEDS: FOLIC ACID 1 MG TAB PO SCH (08:55)
--- NOTE | 2020-04-29 10:10 | Electrocardiogram Report ---
Test Reason : Blood Pressure : / mmHG Vent. Rate : 065 BPM Atrial Rate : 065 BPM P-R Int : 170 ms QRS Dur : 094 ms QT Int : 404 ms P-R-T Axes : 047 -22 032 degrees QTc Int : 420 ms Normal sinus rhythm Septal infarct , age undetermined vs lead placement Abnormal ECG No previous ECGs available Confirmed by Poncho Jean ([id number]) on 04/29/2020 10:10:15 AM Referred By: Amber Pavon Confirmed By:Poncho Jean
--- NOTE | 2020-04-29 16:15 | Communication Note ---
Date of Service: April 29, 2020 Attending: Dr. Bakari Tian Patient admitted earlier this morning Patient seen and examined at bedside No evidence of acute alcohol withdrawal Patient can give me name, date of , address and states that he is at the hospital in [place] Is unable to identify [employer] Patient denies any chest pain or tightness. He has no fever or chills. He has no acute complaints. Temp Pulse Resp BP Pulse Ox 36.8 C 64 18 107/68 96 04/29/20 15:16 04/29/20 15:16 04/29/20 15:16 04/29/20 15:16 04/29/20 15:16 Continue to monitor on medical floor Discussed with Dr. Tian
[2020-04-30 05:27] LABS: Basophils # (auto) 0.08 K/uL (0-0.2); Basophils % (auto) 1.1 %; Eosinophils # (auto) 0.44 K/uL (0-0.5); Eosinophils % (auto) 5.9 %; Hematocrit (blood only) 44.3 % (42-52); Hemoglobin 14.4 g/dL (14.0-18.0); Immature Granulocytes # (auto) 0.02 K/uL (0.00-0.02); Immature Granulocytes % (auto) 0.3 %; Mean Corpuscular Hemoglobin 32.4 pg (25-34); Mean Corpuscular Hgb Conc 32.5 g/dL (32-36); Mean Corpuscular Volume 99.8 fL (80-100); Mean Platelet Volume 12.3 fL (7.4-10.4); Monocytes # (auto) 0.62 K/uL (0.11-0.59); Monocytes % (auto) 8.3 %; Neutrophils # (auto) 3.97 K/uL (1.4-6.5); Neutrophils % (auto) 53.4 %; Platelet Count 220 K/uL (130-400); RDW Coefficient of Variation 13.1 % (11.5-14.5); RDW Standard Deviation 46.9 fL (36.4-46.3); Red Blood Count 4.44 M/uL (4.7-6.1); White Blood Count 7.43 K/uL (4.8-10.8)
[2020-04-30 05:36] LABS: Partial Thromboplastin Time 28.8 Seconds (21.0-31.0); Prothrombin Time 10.9 Seconds (9.0-12.0)
[2020-04-30] MEDS: PARoxetine HCL 20 MG TAB PO SCH (05:56)
[2020-04-30] MEDS: busPIRone 5 MG TAB PO SCH (05:56)
[2020-04-30 06:16] LABS: Albumin Globulin Ratio 0.8 (0.9-2); Albumin Level 3.4 gm/dl (3.4-5.0); BUN Creatinine Ratio 14.2 (10-20); Bilirubin,Total 0.3 mg/dl (0.2-1); Calcium 9.5 mg/dl (8.5-10.1); Creatinine Clr Calc Pharmacy 77.6 ml/min; Est GFR (African American) 85.9; Est GFR (Non-African American) 74.1; Globulin 4.1 gm/dl (2.5-4.0); Magnesium 2.2 mg/dl (1.8-2.4); Potassium 4.3 mmol/L (3.5-5.1); Total Protein 7.5 gm/dl (6.4-8.2)
[2020-04-30] MEDS: carvediloL 25 MG TAB PO SCH ×2 (07:44→20:41)
[2020-04-30] MEDS: CYANOCOBALAMIN 500 MCG TABLET (VITAMIN B-12) PO SCH (07:45)
[2020-04-30] MEDS: THIAMINE HCL 100 MG TAB PO SCH (07:45)
[2020-04-30] MEDS: GABAPENTIN 800 MG TAB PO SCH ×4 (07:45→20:42)
[2020-04-30] MEDS: PANTOprazole 40 MG TAB PO SCH ×2 (07:46→20:41)
[2020-04-30] MEDS: MULTIVITAMIN TAB PO SCH (07:46)
[2020-04-30] MEDS: FOLIC ACID 1 MG TAB PO SCH (07:46)
[2020-04-30] MEDS: SUCRALFATE 1 GM TAB PO SCH ×4 (07:46→20:41)
[2020-04-30] MEDS: HEPARIN SOD 5,000 UNIT/0.5 ML VIAL SQ SCH ×2 (08:28→20:43)
[2020-04-30] MEDS: LORazepam 0.5 MG TAB PO PRN ×2 (11:34→22:20)
[2020-04-30] MEDS ORDERED: ACETAMINOPHEN 325 MG TAB PO PRN (15:11)
--- NOTE | 2020-04-30 17:02 | Hospitalist Progress Note ---
Date of Service April 30, 2020 Assessment & Plan (1) Alcohol withdrawal: Just checked in at [facility] and then was sent out from that institution. - AWSS protocol with IV lorazepam -> Needing very little Ativan with CIWA scale. - Continue his current extensive regimen: Buspirone, vitamin B12, folic acid, gabapentin, multivitamin, and thiamine - He is also on naltrexone microspheres/Vivitrol 380 mg IM monthly. - On 04/30, I added a lower dose Ativan (0.5 mg PO TID PRN) with a bit more discretion for the RN. He had some very mild withdrawal symptoms (tremor and tongue fasciculations) that weren't scoring very high. CM spoke with [facility] who requested PT/OT evals before accepting him back. If he does ok, could possibly be discharged Friday back to [facility] if they will accept him. (2) Altered mental status: Metabolic encephalopathy likely. - Improving with resolution of his withdrawal symptoms. - Monitor (3) CAD (coronary artery disease): S/p CABG in 2017. Reported some chest pain on 04/30 in the evening. - NOT on ASA that I see - EKG ordered on 04/30. - If concern; will trend troponins (4) HTN (hypertension): BP presently 140/95. - Continue carvedilol 25 mg p.o. twice daily. - Hold lisinopril 40 mg every morning for now. (5) Anxiety: See above (6) GERD (gastroesophageal reflux disease): - Continue pantoprazole 40 mg p.o. twice daily (7) DVT prophylaxis: Admission and Anticipated Discharge Date Admission Date: April 29, 2020 Subjective Reports that his confusion has not fully resolved. He says he knows where he is and what the day is, but only because he is looking at the board in the room. Reports no fevers/chills, chest pain, shortness of breath, abdominal pain, nausea, or vomiting. Physical Exam Constitutional: WD/WN, vitals as above Eyes: EOM intact bilaterally; no conjunctival abnormality ENMT: external ear and nose normal, oropharynx normal Mouth: + tongue abnormality (Tongue fasiculations) Neck: trachea midline, no thyromegaly normal visual inspection Respiratory: normal respiratory effort, lungs clear to auscultation no respiratory distress Cardiovascular: RRR, no murmur, no edema Gastrointestinal (Abdomen): Inspection/Auscultation: abdomen normal to inspection; abdomen not distended Musculoskeletal: no cyanosis or clubbing, extremities motor strength 5/5 Skin: no rashes, warm and dry Neurologic: moves all extremities and awake Motor/Sensory: + tremor (Mild tremor); no asterixis Psychiatric: Orientation: alert, oriented to person and cooperative Results & Data Results & Data ([facility]) Vital Signs (Past 12 Hours) Vital Signs Temp Pulse Resp BP BP Pulse Ox 04/30/20 15:20 37.2 C 80 18 142/95 H 95 04/30/20 07:35 36.7 C 57 L 16 125/81 96 04/30/20 05:21 36.5 C 71 16 104/73 97 PG Care Time/CCT Total # of Minutes Spent Total Time Spent with Patient: Total time spent is greater than 50% in coordination of care (as documented) at patient's floor/unit and/or counseling patient: Coding Level of Care Code 94732 Subseq Hosp Care Lvl 3 Diagnoses Alcohol withdrawal F10.231 Complication of substance-induced condition: with delirium Altered mental status R41.0 Altered mental status type: delirium CAD (coronary artery disease) I25.10 HTN (hypertension) I10 Anxiety F41.9 GERD (gastroesophageal reflux disease) K21.9 DVT prophylaxis Z29.9 (1) Alcohol withdrawal Complication of substance-induced condition: with delirium Qualified Code(s): F10.231 - Alcohol dependence with withdrawal delirium (2) Altered mental status Altered mental status type: delirium Qualified Code(s): R41.0 - Disorientation, unspecified
[2020-04-30] MEDS ORDERED: ALUMINUM/MAGNESIUM SUSP 30 ML UDC PO PRN (17:20)
[2020-04-30] MEDS: LORazepam 1 MG/2 ML VIAL IV PRN (17:33)
[2020-04-30] MEDS: busPIRone 15 MG TAB PO SCH (20:41)
[2020-04-30 21:01] LABS: 7-Aminoclonaz, Confirm NEGATIVE ng/mL (<25); Hydro-Alp Ur, GC/MS NEGATIVE ng/mL (<25); Hydroxyethylflurazepam, Conf NEGATIVE ng/mL (<50); Hydroxymidazolam Ur, GC/MS NEGATIVE ng/mL (<50); Hydroxytriazolam NEGATIVE ng/mL (<50); Lorazepam, Ur GC/MS NEGATIVE ng/mL (<50); Nordiazepam, Confirm 170 ng/mL (<50); Oxazepam Ur, GC/MS 506 ng/mL (<50); Temazepam, Confirm 509 ng/mL (<50)
[2020-05-01] MEDS: MELATONIN 3 MG TAB PO PRN ×2 (01:56→20:36)
[2020-05-01 05:26] LABS: Basophils # (auto) 0.05 K/uL (0-0.2); Basophils % (auto) 0.7 %; Eosinophils # (auto) 0.41 K/uL (0-0.5); Eosinophils % (auto) 5.7 %; Hematocrit (blood only) 43.1 % (42-52); Hemoglobin 14.5 g/dL (14.0-18.0); Immature Granulocytes # (auto) 0.02 K/uL (0.00-0.02); Immature Granulocytes % (auto) 0.3 %; Lymphocytes # (auto) 1.91 K/uL (1.2-3.4); Lymphocytes % (auto) 26.6 %; Mean Corpuscular Hgb Conc 33.6 g/dL (32-36); Mean Corpuscular Volume 98.2 fL (80-100); Mean Platelet Volume 12.2 fL (7.4-10.4); Monocytes # (auto) 0.69 K/uL (0.11-0.59); Monocytes % (auto) 9.6 %; Neutrophils % (auto) 57.1 %; Platelet Count 223 K/uL (130-400); RDW Standard Deviation 46.3 fL (36.4-46.3); Red Blood Count 4.39 M/uL (4.7-6.1); White Blood Count 7.18 K/uL (4.8-10.8)
[2020-05-01 05:31] LABS: INR 1.1 (0.9-1.1); Partial Thromboplastin Ratio 1.1; Partial Thromboplastin Time 29.4 Seconds (21.0-31.0); Prothrombin Time 11.3 Seconds (9.0-12.0)
[2020-05-01 05:50] LABS: Albumin Level 3.4 gm/dl (3.4-5.0); BUN Creatinine Ratio 12.2 (10-20); Calcium 9.5 mg/dl (8.5-10.1); Creatinine Clr Calc Pharmacy 73.6 ml/min; Est GFR (African American) 80.6; Est GFR (Non-African American) 69.5; Magnesium 2.3 mg/dl (1.8-2.4); Potassium 4.3 mmol/L (3.5-5.1)
[2020-05-01 05:52] LABS: Albumin Globulin Ratio 0.8 (0.9-2); Bilirubin,Total 0.3 mg/dl (0.2-1); Globulin 4.3 gm/dl (2.5-4.0); Phosphorus 3.5 mg/dl (2.5-4.9); Total Protein 7.7 gm/dl (6.4-8.2)
[2020-05-01] MEDS: carvediloL 25 MG TAB PO SCH ×2 (07:29→20:23)
[2020-05-01] MEDS: SUCRALFATE 1 GM TAB PO SCH ×4 (07:29→20:21)
[2020-05-01] MEDS: busPIRone 15 MG TAB PO SCH ×2 (07:29→20:18)
[2020-05-01] MEDS: MULTIVITAMIN TAB PO SCH (07:30)
[2020-05-01] MEDS: PANTOprazole 40 MG TAB PO SCH ×2 (07:30→20:18)
[2020-05-01] MEDS: FOLIC ACID 1 MG TAB PO SCH (07:30)
[2020-05-01] MEDS: CYANOCOBALAMIN 500 MCG TABLET (VITAMIN B-12) PO SCH (07:30)
[2020-05-01] MEDS: THIAMINE HCL 100 MG TAB PO SCH (07:30)
[2020-05-01] MEDS: PARoxetine HCL 20 MG TAB PO SCH (07:30)
[2020-05-01] MEDS: HEPARIN SOD 5,000 UNIT/0.5 ML VIAL SQ SCH ×2 (07:31→20:24)
[2020-05-01] MEDS: GABAPENTIN 800 MG TAB PO SCH ×4 (07:31→20:22)
[2020-05-01] MEDS: LORazepam 0.5 MG TAB PO PRN (07:37)
--- NOTE | 2020-05-01 09:00 | Electrocardiogram Report ---
Test Reason : Blood Pressure : / mmHG Vent. Rate : 079 BPM Atrial Rate : 079 BPM P-R Int : 168 ms QRS Dur : 096 ms QT Int : 384 ms P-R-T Axes : 036 -27 031 degrees QTc Int : 440 ms Normal sinus rhythm Possible Old Septal infarct vs. lead placement When compared with ECG of 29-APR-2020 00:01, No significant change was found Confirmed by Abimael Jiang ([id number]) on 05/01/2020 9:00:43 AM Referred By: Amber Pavon Confirmed By:Abimael Jiang
--- NOTE | 2020-05-01 11:19 | Hospitalist Progress Note ---
Date of Service May 01, 2020 Assessment & Plan (1) Alcohol withdrawal: Just checked in at [facility] and then was sent out from that institution. - AWSS protocol with IV lorazepam -> Needing very little Ativan with CIWA scale. - Continue his current extensive regimen: Buspirone, vitamin B12, folic acid, gabapentin, multivitamin, and thiamine - He is also on naltrexone microspheres/Vivitrol 380 mg IM monthly. - On 04/30, I added a lower dose Ativan (0.5 mg PO TID PRN) with a bit more discretion for the RN. He had some very mild withdrawal symptoms (tremor and tongue fasciculations) that weren't scoring very high. CM spoke with [facility] who requested PT/OT evals before accepting him back. If he does ok, could possibly be discharged Friday back to [facility] if they will accept him. On 05/01, awaiting placement. Still having tremors. Still requiring benzos, cannot returm to rehab unless off benzos. (2) Altered mental status: Metabolic encephalopathy likely. - Improving with resolution of his withdrawal symptoms. - Monitor (3) CAD (coronary artery disease): S/p CABG in 2017. Reported some chest pain on 04/30 in the evening. - NOT on ASA that I see - EKG ordered on 04/30. - If concern; will trend troponins (4) HTN (hypertension): BP presently 140/95. - Continue carvedilol 25 mg p.o. twice daily. - Hold lisinopril 40 mg every morning for now. (5) Anxiety: See above (6) GERD (gastroesophageal reflux disease): - Continue pantoprazole 40 mg p.o. twice daily (7) DVT prophylaxis: Admission and Anticipated Discharge Date Admission Date: April 29, 2020 Subjective Patient seems a little withdrawn today. Patient states his tremors have improved, and he no longer is having chest pain. He reports his chest pain improved after maalox was ordered. Review of Systems Review of Systems: All systems reviewed & are unremarkable except as noted in HPI & below Physical Exam Physical Exam: Constitutional: WD/WN, vitals as above Eyes: EOM intact bilaterally; no conjunctival abnormality ENMT: external ear and nose normal, oropharynx normal Neck: trachea midline, no thyromegaly normal visual inspection Respiratory: normal respiratory effort, lungs clear to auscultation no respiratory distress Cardiovascular: RRR, no murmur, no edema Gastrointestinal (Abdomen): Inspection/Auscultation: abdomen normal to inspection; abdomen not distended Musculoskeletal: no cyanosis or clubbing, extremities motor strength 5/5 Skin: no rashes, warm and dry Neurologic: moves all extremities and awake Psychiatric: Orientation: alert, oriented to person and cooperative Results & Data Results & Data ([facility]) Vital Signs (Past 12 Hours) Vital Signs Temp Pulse Resp BP Pulse Ox 05/01/20 07:27 36.7 C 67 16 108/71 94 PG Care Time/CCT Total # of Minutes Spent Total Time Spent with Patient: Total time spent is greater than 50% in coordination of care (as documented) at patient's floor/unit and/or counseling patient: Coding Level of Care Code 67598 Subseq Hosp Care Lvl 3 Diagnoses Alcohol withdrawal F10.231 Complication of substance-induced condition: with delirium Altered mental status R41.0 Altered mental status type: delirium CAD (coronary artery disease) I25.10 HTN (hypertension) I10 Anxiety F41.9 GERD (gastroesophageal reflux disease) K21.9 DVT prophylaxis Z29.9 Time Spent (min) 35 (1) Alcohol withdrawal Complication of substance-induced condition: with delirium Qualified Code(s): F10.231 - Alcohol dependence with withdrawal delirium (2) Altered mental status Altered mental status type: delirium Qualified Code(s): R41.0 - Disorienta tion, unspecified
[2020-05-01] MEDS: LORazepam 1 MG/2 ML VIAL IV PRN (12:04)
[2020-05-02] MEDS: LORazepam 0.5 MG TAB PO PRN (00:33)
[2020-05-02] MEDS ORDERED: hydrOXYzine HCl 25 MG TAB PO STA (02:18)
[2020-05-02] MEDS: SUCRALFATE 1 GM TAB PO SCH ×2 (07:56→10:53)
[2020-05-02] MEDS: carvediloL 25 MG TAB PO SCH (07:56)
[2020-05-02] MEDS: busPIRone 15 MG TAB PO SCH (07:56)
[2020-05-02] MEDS: FOLIC ACID 1 MG TAB PO SCH (07:57)
[2020-05-02] MEDS: HEPARIN SOD 5,000 UNIT/0.5 ML VIAL SQ SCH (07:57)
[2020-05-02] MEDS: GABAPENTIN 800 MG TAB PO SCH ×2 (07:57→13:40)
[2020-05-02] MEDS: MULTIVITAMIN TAB PO SCH (07:57)
[2020-05-02] MEDS: CYANOCOBALAMIN 500 MCG TABLET (VITAMIN B-12) PO SCH (07:58)
[2020-05-02] MEDS: PARoxetine HCL 20 MG TAB PO SCH (07:58)
[2020-05-02] MEDS: PANTOprazole 40 MG TAB PO SCH (07:58)
[2020-05-02] MEDS: THIAMINE HCL 100 MG TAB PO SCH (07:58)
[2020-05-02 08:45] LABS: Partial Thromboplastin Time 27.3 Seconds (21.0-31.0)
--- NOTE | 2020-05-09 23:43 | Discharge Summary ---
Date of Service May 02, 2020 Admission HPI Per Admitting Provider The patient is a 55-year-old male with a past medical history including CAD, hypertension, vitamin B12 deficiency, anxiety, alcohol abuse disorder, GERD and chronic treatment for alcohol abuse. The patient initially presented to the emergency department confused, not knowing where he was staying at locally, and unable to answer questions properly. He did improve somewhat after administration of vitamins and IV fluids, but was showing signs of significant body tremors, and withdrawal from alcohol. Principal Diagnosis Alcohol withdrawal Discharge Exam Constitutional: WD/WN, vitals as above Eyes: EOM intact bilaterally; no conjunctival abnormality ENMT: external ear and nose normal, oropharynx normal Neck: trachea midline, no thyromegaly normal visual inspection Respiratory: normal respiratory effort, lungs clear to auscultation no respiratory distress Cardiovascular: RRR, no murmur, no edema Gastrointestinal (Abdomen): Inspection/Auscultation: abdomen normal to inspection; abdomen not distended Musculoskeletal: no cyanosis or clubbing, extremities motor strength 5/5 Skin: no rashes, warm and dry Neurologic: moves all extremities and awake Psychiatric: Orientation: alert, oriented to person and cooperative Discharge Data Allergies Allergy/AdvReac Type Severity Reaction Status Date / Time baclofen Allergy Unknown Verified 04/29/20 00:18 cyclobenzaprine Allergy Unknown Verified 04/29/20 00:18 [From Flexeril] naproxen Allergy Unknown Verified 04/29/20 00:18 Consultations 04/29/20 01:22 ED Decision to Admit Stat 04/29/20 04:44 Consult Case Management - Discharge Planning Routine Ordered Studies 04/28/20 23:58 CT head/brain wo con Urgent Hospital Course (1) Alcohol withdrawal: Just checked in at [facility] and then was sent out from that institution. - AWSS protocol with IV lorazepam -> Needing very little Ativan with CIWA scale. - Continue his current extensive regimen: Buspirone, vitamin B12, folic acid, gabapentin, multivitamin, and thiamine - He is also on naltrexone microspheres/Vivitrol 380 mg IM monthly. - On 04/30, I added a lower dose Ativan (0.5 mg PO TID PRN) with a bit more discretion for the RN. He had some very mild withdrawal symptoms (tremor and tongue fasciculations) that weren't scoring very high. CM spoke with [facility] who requested PT/OT evals before accepting him back. If he does ok, could possibly be discharged Friday back to [facility] if they will accept him. On 05/01, awaiting placement. Still having tremors. Still requiring benzos, cannot return to rehab unless off benzos. On 05/02 no longer having tremors, agreeable to discharge (2) Altered mental status: Metabolic encephalopathy likely. - Improving with resolution of his withdrawal symptoms. - Monitor (3) CAD (coronary artery disease): S/p CABG in 2017. Reported some chest pain on 04/30 in the evening. - NOT on ASA that I see - EKG ordered on 04/30. - If concern; will trend troponins (4) HTN (hypertension): BP presently 140/95. - Continue carvedilol 25 mg p.o. twice daily. - Hold lisinopril 40 mg every morning for now. (5) Anxiety: See above (6) GERD (gastroesophageal reflux disease): - Continue pantoprazole 40 mg p.o. twice daily (7) DVT prophylaxis: Total Time Total Time Spent Total Time Spent (In Minutes): 32 Total Time Includes: Examination of the Patient, Discharge Planning and Medication Reconciliation Discharge Plan Discharge Items Patient Disposition: Drug & Alcohol Rehab Reason For Visit: CONFUSION Discharge Diagnosis: confusion Activity: Resume your previous activity Non-emergency contact: Primary Care Provider Call non-emergency contact if: you have any medication questions Follow-up/Referrals: MauriceVichy [Primary Care Provider] - Diet: Heart Healthy Addtl Attending Provider Instructions: You have been hospitalized for an acute medical problem. During your stay at [facility], we have made an effort to correct the problem that brought you to the hospital while keeping you as comfortable as possible. Medications were used to bring your condition under control and your discharge instructions will include directions for any medications you should take after leaving the hospital. Please make sure you see your Primary Care Provider as part of your follow up plan. Pending Studies at Discharge: No Stand-Alone Forms: My [facility] Skilled Items Patient informed of condition?: No DNR: No Discharge Level of Care: Other Communicable Disease: No Discharge Prognosis: Stable Lines: None Urinary Catheter: No Medications and DC Order Prescriptions: New acetaminophen 325 mg Tablet 650 mg PO Q6HWA PRNQty: 0 RF: 0 melatonin 3 mg Tablet 3 mg PO HS PRN (Reason: sleep) Qty: 30 RF: 0 Continued carvedilol [Coreg] 25 mg Tablet 25 mg PO BID RF: 0 cyanocobalamin (vitamin B-12) [Vitamin B-12] 1,000 mcg Tablet 1,000 mcg PO DAILY RF: 0 thiamine HCl (vitamin B1) 100 mg Tablet 100 mg PO DAILY RF: 0 gabapentin 800 mg tablet 800 mg PO QID RF: 0 paroxetine HCl [Paxil] 20 mg Tablet 20 mg PO QAM RF: 0 folic acid 1 mg Tablet 1 mg PO DAILY RF: 0 Vivitrol 380 mg suspension,extended rel recon 380 mg IM MONTHLY RF: 0 magnesium oxide 400 mg magnesium Tablet 400 mg PO BID RF: 0 multivitamin Tablet 1 tab PO DAILY RF: 0 buspirone 5 mg Tablet 5 mg PO BID RF: 0 sucralfate 1 gram Tablet 1 g PO ACHS RF: 0 pantoprazole [Protonix] 40 mg Tablet,Delayed Release (Dr/Ec) 40 mg PO BID RF: 0 ondansetron HCl 8 mg Tablet 8 mg PO Q8H PRN (Reason: Nausea) RF: 0 Discontinued lisinopril 40 mg Tablet 40 mg PO QAM RF: 0 Discharge Orders: Discharge Order (Routine); Ordered 05/02/20 Ordered By: Marlon Meyer Admission Data Admit Date/Time: 04/29/20 02:40 Attending Provider: Marlon Meyer Admit Provider: Harry Hodgson Primary Care Provider: [facility] Other Providers: Bakari Tian Other Interventions: Discharge Summary Assessment (RN) Last Done: 05/02/20 12:21 Coding Level of Care Code D/C Day Management >30 mins Diagnoses Alcohol withdrawal F10.231 Complication of substance-induced condition: with delirium Altered mental status R41.0 Altered mental status type: delirium CAD (coronary artery disease) I25.10 HTN (hypertension) I10 Anxiety F41.9 GERD (gastroesophageal reflux disease) K21.9 DVT prophylaxis Z29.9
== END 2020-05-02 15:17 | disposition alcohol treatment (31) | DRG 896 ==
LOC: ED 23:51 → 3W 04-29 02:40 → SUATTDRO 04-29 02:40 → 3W 04-29 04:24